=== PATIENT | female | born 1965 | race Two or more races ===

== ENCOUNTER 2017-05-29 19:22 | Emergency (ER) | payer OTHER ==
[~2017-05-29] VITALS: Ht 165.1 cm; Wt 87.9 kg
[2017-05-29 21:05] LABS: BASOPHILS % 0.7 % (0.0-2.0); EOSINOPHILS % 1.9 % (0.0-5.0); HEMATOCRIT. 36.5 % (36.0-48.0); HEMOGLOBIN. 12.5 g/dL (12.0-16.0); LYMPHOCYTES % 30.8 % (20.0-50.0); MEAN CORPUSCULAR HEMOGLOBIN 31.6 pg (28.0-32.0); MEAN CORPUSCULAR VOLUME 92.5 fL (81.0-99.0); MEAN PLATELET VOLUME 9.5 fl (7.4-10.4); MONOCYTES % 8.2 % (2.0-8.0); NEUTROPHILS % 58.4 % (40.0-76.0); PLATELET 234 x1000/uL (130-400); RED BLOOD CELL COUNT 3.95 mill/uL (4.2-5.4); RED CELL DISTRIBUTION WIDTH 12.6 % (11.6-14.6)
[2017-05-29 21:12] LABS: CHLORIDE 108 mEq/L (98-107)
[2017-05-29 21:17] LABS: TROPONIN I < 0.02 ng/mL (0.00-0.04)
[2017-05-29 21:58] VITALS: BP 121/64
== END 2017-05-29 22:03 | disposition home or self-care (01) ==
LOC: ER 20:24
DX: M54.12 Radiculopathy, cervical region (principal); R51 Headache; R07.89 Other chest pain
CPT/HCPCS: 36415; 71045; 80048; 84484; 85025; 99285; Z7610; 93005